=== PATIENT | male | born 1975 | race Caucasian/White ===

== ENCOUNTER 2024-06-27 19:29 | Emergency (ER) | payer OTHER ==
[~2024-06-27] VITALS: Ht 170.2 cm; Wt 100.0 kg
[2024-06-27 19:33] VITALS: O2SAT 96
[2024-06-27] MEDS: KETOROLAC 30MG/ML VIAL IV STA (20:59)
[2024-06-27] MEDS: LEVETIRACETAM 500MG PREMIX 100 ML IV ONE (21:00)
[2024-06-27] MEDS: ONDANSETRON HCL 4MG/2ML INJ IV STA (21:00)
[2024-06-27] MEDS: SODIUM CHLORIDE 0.9% 1,000 ML IV ONE (21:00)
[2024-06-27 21:10] LABS: BASOPHILS % 0.3 % (0.0-2.0); EOSINOPHILS % 1.4 % (0.0-5.0); HEMATOCRIT. 48.7 % (42.0-52.0); HEMOGLOBIN. 16.4 g/dL (14.0-18.0); LYMPHOCYTES % 8.1 % (20.0-50.0); MEAN CORPUSCULAR HEMOGLOBIN 30.7 pg (28.0-32.0); MEAN CORPUSCULAR HGB CONC 33.7 g/dL (31.0-37.0); MEAN CORPUSCULAR VOLUME 91.2 fL (80.0-94.0); MONOCYTES % 7.9 % (2.0-8.0); NEUTROPHILS % 82.3 % (40.0-76.0); PLATELET 272 x1000/uL (130-400); RED BLOOD CELL COUNT 5.33 mill/uL (4.7-6.1); RED CELL DISTRIBUTION WIDTH 13.8 % (11.6-14.6); WHITE BLOOD COUNT 11.6 x1000/uL (4.5-11.0)
[2024-06-27 21:18] LABS: CHLORIDE 103 mEq/L (98-107); POTASSIUM 3.7 mEq/L (3.5-5.1); SODIUM 140 mEq/L (136-145)
[2024-06-27 21:19] LABS: CALCIUM 9.2 mg/dL (8.7-10.4); CARBON DIOXIDE 28 mEq/L (21-32)
[2024-06-27 21:24] LABS: CREATININE 1.2 mg/dL (0.6-1.3); GLUCOSE 134 mg/dL (70-105); UREA NITROGEN BLOOD 15 mg/dL (9-23)
[2024-06-27 21:26] LABS: ALANINE AMINOTRANSFERASE 47 IU/L (10-49); ALBUMIN 4.5 g/dL (3.2-4.8); ASPARTATE AMINOTRANSFERASE 34 IU/L (<34); BILIRUBIN DIRECT 0.3 mg/dL (<=3.0); BILIRUBIN TOTAL 1.1 mg/dL (0.1-1.0); PROTEIN TOTAL 8.1 g/dL (6.0-8.3); TROPONIN I HIGH SENSITIVITY < 4 ng/L (3.0-53)
[2024-06-27] MEDS: ACETAMINOPHEN 325MG TABLET PO NR (23:24)
[2024-06-28 04:00] VITALS: TEMP 36.7
[2024-06-28 06:43] VITALS: BP 121/86; PULSE 62; RESP 18; O2SAT 100
== END 2024-06-28 06:56 | disposition short-term general hospital (02) ==
LOC: ER 19:29
DX: R55 Syncope and collapse (principal)
CPT/HCPCS: 80076; 80048; 82962; 83690; 85025; 84484; 36415; 71045; 70450; 74176; 93005; 96365; 96375; 99285; J1953; J1885; J2405; J7030; Z7610